=== PATIENT | female | born 1980 | race Caucasian/White ===

== ENCOUNTER 2024-04-13 19:11 | Emergency (ER) | payer OTHER, SELFPAY ==
[2024-04-13 19:25] VITALS: BP 128/68
[2024-04-13 20:07] LABS: % Basophils 0.6 % (0-2); % Immature Granulocytes 0.1 % (0-0.5); % Lymphocytes 31.7 % (20.5-51.1); % Monocytes 2.8 % (1.7-9.3); % Neutrophils 63.8 % (42.2-75.2); Absolute Eosinophils 0.1 10^3/uL (0-0.7); Absolute Lymphocytes 2.1 10^3/uL (1.2-3.4); Absolute Monocytes 0.2 10^3/uL (0.1-0.6); Absolute Neutrophils 4.3 10^3/uL (1.4-6.5); Hematocrit 35.7 % (37.0-47.0); Hemoglobin 12.9 g/dL (12.0-16.0); Mean Corp Hgb Conc. 36.1 g/dL (33.0-37.0); Mean Corpuscular Hgb 30.1 pg (27.0-31.0); Mean Corpuscular Volume 83.4 fL (81.0-99.0); Mean Platelet Volume 9.7 fL (7.4-10.4); Nucleated Red Blood Cells % 0 %; Platelet Count 195 10^3/uL (130-400); Red Blood Cell Count 4.28 10^6/uL (4.20-5.40); Red Cell Dist. Width 12.4 % (11.5-14.5); White Blood Cell Count 6.7 10^3/uL (4.8-10.8)
[2024-04-13 20:20] LABS: ALT (SGPT) 25 U/L (0-35); AST (SGOT) 34 U/L (14-36); Albumin 4.4 g/dl (3.5-5.0); Alkaline Phosphatase 69 U/L (38-126); Blood Urea Nitrogen 17 mg/dl (7-17); Calcium 9.3 mg/dl (8.4-10.2); Carbon Dioxide 31 mmol/L (22-30); Chloride 101 mmol/L (98-107); Glucose 102 mg/dl (70-99); Lipase 91 U/L (23-300); Potassium 3.5 mmol/L (3.5-5.1); Sodium 139 mmol/L (135-145); Total Bilirubin 1.2 mg/dl (0.2-1.3); Total Protein 7.2 g/dl (6.3-8.2); eGFR > 60.00
[2024-04-13 20:32] LABS: Troponin I < 0.012 ng/ml
--- NOTE | 2024-04-13 20:57 | ED.GENMED ---
History of Present Illness
General
Chief Complaint: Chest Pain
Time Seen by Provider: 04/13/24 20:04
Travel History
Have you had any contact with someone who has COVID-19?: No
Do you have any symptoms of coronavirus? Fever > 100 degrees, chills, cough, shortness of breath, sore throat, loss of taste or smell, muscle aches, or headache?: No
Course
Orders/Labs/Results
Orders:
Orders
04/13/24 19:13
EKG [Electrocardiogram (*1)] Stat
Reason for Study: Chest Pain
04/13/24 19:14
EKG- Treatment ONCE
04/13/24 19:32
Cardiac Monitoring- Treatment ONCE
IV Insert/Care/Rem.- Treatment PRN
CR Chest - 2 Views Urgent
Comment:
Reason For Exam: respiratory distress
O2 Therapy [RESP] Urgent
Titrate/Wean O2 to maintain O2 sat greater than (%): 93
Special Instructions: TO MAINTAIN CONTINUOUS O2 SATS >/= 93%
Pulse Ox/cont/shift [RESP] Urgent
Quantity: 1
Special Instructions: continuous pulse ox
04/13/24 20:02
Complete Blood Count/With Diff Urgent
Comprehensive Metabolic Panel Urgent
Lipase Urgent
Troponin I Urgent
04/13/24 20:55
Ketorolac [Toradol] 30 mg IM NOW STA
04/13/24 20:59
D-Dimer Urgent
Abnormal Lab Results
04/13/24
20:02
Hct 35.7 L %
(37.0-47.0)
Carbon Dioxide 31 H mmol/L
(22-30)
Glucose 102 H mg/dl
(70-99)
04/13/24 20:02
04/13/24 20:02
Vital Signs
Initial and Last Documented VS:
Initial Vital Signs
Temp Pulse Resp BP Pulse Ox
98.6 F 66 20 128/68 99
04/13/24 19:25 04/13/24 19:25 04/13/24 19:25 04/13/24 19:25 04/13/24 19:25
Last Documented Vital Signs
Temp Pulse Resp BP Pulse Ox
98.6 F 72 18 128/68 99
04/13/24 19:25 04/13/24 20:00 04/13/24 20:00 04/13/24 19:25 04/13/24 20:00
ED Attending Note
ED Attending Note
Patient seen and examined by attending physician: Yes
I performed the substantive portion of visit, reviewed & personally made and approve the management plan that is documented in note by myself or ASHUTOSH.: Yes
-
Portions of this chart may have been created with voice recognition software.� Occasional wrong word or��sound alike� substitutions may have occurred due to the inherent limitations of voice recognition software.
Discharge Plan
Departure
Patient Disposition: Home (Routine Discharge)
Date of Disposition: 04/13/24
Time of Disposition: 22:14
Patient with high blood pressure during this ER visit?: No
Condition: Good
Covid-19: Not Applicable
Discharge Problem:
Chest pain
Instructions: Chest Pain That Is Not Caused by the Heart (DC), Ibuprofen, Chest Pain PCP Follow Up
Prescriptions:
No Action
escitalopram oxalate [Lexapro] 10 mg Tablet
10 mg PO DAILY
Referrals:
Lucy Robledo MD [Family Provider] - Follow up in 2-3 days
Activity Restrictions/Additional Instructions:
Return to the emergency department immediately for any changes in/worsening of your symptoms.
Interventions
Interventions:
*Risk Screen - Suicide Last Done: 04/13/24 19:25
*General Assessment Last Done: 04/13/24 19:25
*Neglect/Abuse Screening Last Done: 04/13/24 19:25
ED- Fall Risk Assessment Last Done: 04/13/24 19:25
*ED COVID-19 Vaccine History Last Done: 04/13/24 19:25
*Nursing Disposition Last Done: 04/13/24 22:29
ED- Cardiac Assessment Last Done: 04/13/24 19:50
Discharge Date and Time
Discharge Date/Time: 04/13/24 22:29
Print Language: VENEZUELAN
[2024-04-13] MEDS: TORADOL 30 MG IM (21:02)
[2024-04-13 21:17] LABS: D-Dimer 0.28 ug/mlFEU (0.00-0.50)
--- NOTE | 2024-04-13 23:42 | ED.GENMED ---
History of Present Illness
<Ana Casey NP - Last Filed: 04/14/24 00:56>
General
Chief Complaint: Chest Pain
Source: patient
Exam Limitations: none
Time Seen by Provider: 04/13/24 20:04
Nursing documentation reviewed up to this point in time: agreed with
Travel History
Have you had any contact with someone who has COVID-19?: No
Do you have any symptoms of coronavirus? Fever > 100 degrees, chills, cough, shortness of breath, sore throat, loss of taste or smell, muscle aches, or headache?: No
History of Present Illness
History of Present Illness:
Patient to ED with complaint of left ant. chest pain. States it is located in 1 spot on left side of chest. Pain does not radiate. No associated n/v/diaphoresis. Denies any SOB. No prior history of same. Symptoms started approx 2 hours [employer]
Past History
<Ana Casey NP - Last Filed: 04/14/24 00:56>
Past History
ED Past Medical History: Psychiatric (anxiety)
ED Past Surgical History: and Other (benign breast tumor)
Social History
Tobacco: Non-smoker
Alcohol: None
Drug: Marijuana (occasional)
Review of Systems
<Ana Casey NP - Last Filed: 04/14/24 00:56>
Review of Systems
Allergies reviewed?: Yes
All Other Systems: ROS reviewed and negative except as documented in HPI and ROS
Constitutional: Reports no symptoms
EENT: Reports no symptoms
Respiratory: Reports no symptoms
Cardiac: Reports chest pain
ABD/GI: Reports no symptoms
Musculoskeletal: Reports no symptoms
Skin: Reports no symptoms
Neurological: Reports no symptoms
Psychiatric: Reports no symptoms
Phy Exam
<Ana Casey NP - Last Filed: 04/14/24 00:56>
General Physical Exam
General Presentation: well appearing and no apparent distress
General age: appears stated age
General Skin: warm and dry
General Habitus: normal
General Mental: alert
Cardiovascular Exam
Cardiovascular Exam: regular rate/rhythm and no edema
Pulmonary Exam
Pulmonary Exam: lungs clear and no respiratory distress
Musculoskeletal Exam
Musculoskeletal Exam: full ROM and neuro vasc intact
Skin Exam
Skin Exam: normal color
Psychiatric Exam
Psychiatric Exam: normal mood/affect
Scores
<Ana Casey NP - Last Filed: 04/14/24 00:56>
Heart Score for Chest Pain Patients
STEMI patient?: No
History: Slightly or Non-Suspicious
ECG: Normal
Age: </= 45 years
Risk Factors: No Risk Factors
Troponin: </= Normal Limit
Heart Score for Chest Pain Patients: 0
Heart Score Risk: 2.5% MACE over next 6 weeks
<Nino Roberts DO - Last Filed: 04/17/24 09:16>
Heart Score for Chest Pain Patients
Heart Score for Chest Pain Patients: 0
Heart Score Risk: 2.5% MACE over next 6 weeks
Course
<Ana Casey DIRECTOR CLINICAL DATA - Last Filed: 04/14/24 00:56>
Orders/Labs/Results
Orders:
Orders
04/13/24 19:13
EKG [Electrocardiogram (*1)] Stat
Reason for Study: Chest Pain
04/13/24 19:14
EKG- Treatment ONCE
04/13/24 19:32
Cardiac Monitoring- Treatment ONCE
IV Insert/Care/Rem.- Treatment PRN
CR Chest - 2 Views Urgent
Comment:
Reason For Exam: respiratory distress
O2 Therapy [RESP] Urgent
Titrate/Wean O2 to maintain O2 sat greater than (%): 93
Special Instructions: TO MAINTAIN CONTINUOUS O2 SATS >/= 93%
Pulse Ox/cont/shift [RESP] Urgent
Quantity: 1
Special Instructions: continuous pulse ox
04/13/24 20:02
Complete Blood Count/With Diff Urgent
Comprehensive Metabolic Panel Urgent
Lipase Urgent
Troponin I Urgent
04/13/24 20:55
Ketorolac [Toradol] 30 mg IM NOW STA
04/13/24 20:59
D-Dimer Urgent
Abnormal Lab Results
04/13/24
20:02
Hct 35.7 L %
(37.0-47.0)
Carbon Dioxide 31 H mmol/L
(22-30)
Glucose 102 H mg/dl
(70-99)
04/13/24 20:02
04/13/24 20:02
Vital Signs
Initial and Last Documented VS:
Initial Vital Signs
Temp Pulse Resp BP Pulse Ox
98.6 F 66 20 128/68 99
04/13/24 19:25 04/13/24 19:25 04/13/24 19:25 04/13/24 19:25 04/13/24 19:25
Last Documented Vital Signs
Temp Pulse Resp BP Pulse Ox
98.6 F 72 18 128/68 99
04/13/24 19:25 04/13/24 20:00 04/13/24 20:00 04/13/24 19:25 04/13/24 20:00
Abnerlt;Nino Roberts DO - Last Filed: 04/17/24 09:16>
Orders/Labs/Results
Orders:
Orders
04/13/24 19:13
EKG [Electrocardiogram (*1)] Stat
Reason for Study: Chest Pain
04/13/24 19:14
EKG- Treatment ONCE
04/13/24 19:32
Cardiac Monitoring- Treatment ONCE
IV Insert/Care/Rem.- Treatment PRN
CR Chest - 2 Views Urgent
Comment:
Reason For Exam: respiratory distress
O2 Therapy [RESP] Urgent
Titrate/Wean O2 to maintain O2 sat greater than (%): 93
Special Instructions: TO MAINTAIN CONTINUOUS O2 SATS >/= 93%
Pulse Ox/cont/shift [RESP] Urgent
Quantity: 1
Special Instructions: continuous pulse ox
04/13/24 20:02
Complete Blood Count/With Diff Urgent
Comprehensive Metabolic Panel Urgent
Lipase Urgent
Troponin I Urgent
04/13/24 20:55
Ketorolac [Toradol] 30 mg IM NOW STA
04/13/24 20:59
D-Dimer Urgent
Abnormal Lab Results
04/13/24
20:02
Hct 35.7 L %
(37.0-47.0)
Carbon Dioxide 31 H mmol/L
(22-30)
Glucose 102 H mg/dl
(70-99)
04/13/24 20:02
04/13/24 20:02
Vital Signs
Initial and Last Documented VS:
Initial Vital Signs
Temp Pulse Resp BP Pulse Ox
98.6 F 66 20 128/68 99
04/13/24 19:25 04/13/24 19:25 04/13/24 19:25 04/13/24 19:25 04/13/24 19:25
Last Documented Vital Signs
Temp Pulse Resp BP Pulse Ox
98.6 F 72 18 128/68 99
04/13/24 19:25 04/13/24 20:00 04/13/24 20:00 04/13/24 19:25 04/13/24 20:00
&;Ana Casey NP - Last Filed: 04/14/24 00:56>
*Critical Care Note
Total Time (30-74mins, 75-104mins- exclusive of procedures): Not Applicable
ED Attending Note
<Ana Casey NP - Last Filed: 04/14/24 00:56>
-
Portions of this chart may have been created with voice recognition software.� Occasional wrong word or��sound alike� substitutions may have occurred due to the inherent limitations of voice recognition software.
<Nino Roberts DO - Last Filed: 04/17/24 09:16>
ED Attending Note
Patient seen and examined by attending physician: Yes
I performed the substantive portion of visit, reviewed & personally made and approve the management plan that is documented in note by myself or ASHUTOSH.: Yes
ED Attending Note:
Patient is a 43-year-old female presents to the emergency department after approximately 3 to 4 hours ago she was walking or driving home and developed left chest pain that will not stop. Patient states it is a pressure that increases with
breathing and moving around. She also states that sharp. Patient denies history of PE or DVT. Patient denies risk factors for PE or DVT. Patient denies leg pain or swelling. Patient is non-smoker. Patient denies fever, chills, nasal congestion
or sore throat. Patient had a cough last week along with stomach upset that resolved. Patient denies any abdominal pain, nausea, vomiting or diarrhea. Patient denies any family history of CAD. On physical exam patient is in no distress. Heart
is regular without murmur or gallop. Lungs are clear. Patient has no bruits. Patient is normocephalic and supple neck. Abdomen is soft nontender. Chest wall is nontender. Legs no tenderness, swelling, cyanosis. Patient has good pulses. EKG
and labs are unremarkable as is the chest x-ray. Will check a D-dimer but believe this to be more costochondritis, musculoskeletal chest pain. Anticipate the patient being able to be discharged and go home.
Discharge Plan
Departure
Patient Disposition: Home (Routine Discharge)
Date of Disposition: 04/13/24
Time of Disposition: 22:14
Patient with high blood pressure during this ER visit?: No
Condition: Good
Covid-19: Not Applicable
Discharge Problem:
Chest pain
Instructions: Chest Pain That Is Not Caused by the Heart (DC), Ibuprofen, Chest Pain PCP Follow Up
Prescriptions:
No Action
escitalopram oxalate [Lexapro] 10 mg Tablet
10 mg PO DAILY
Referrals:
Lucy Robledo MD [Family Provider] - Follow up in 2-3 days
Activity Restrictions/Additional Instructions:
Return to the emergency department immediately for any changes in/worsening of your symptoms.
Interventions
Interventions:
*Risk Screen - Suicide Last Done: 04/13/24 19:25
*General Assessment Last Done: 04/13/24 19:25
*Neglect/Abuse Screening Last Done: 04/13/24 19:25
ED- Fall Risk Assessment Last Done: 04/13/24 19:25
*ED COVID-19 Vaccine History Last Done: 04/13/24 19:25
*Nursing Disposition Last Done: 04/13/24 22:29
ED- Cardiac Assessment Last Done: 04/13/24 19:50
Discharge Date and Time
Discharge Date/Time: 04/13/24 22:29
Print Language: SLOVENIAN
== END 2024-04-13 22:29 | disposition home or self-care (01) ==
LOC: EMR 19:11
PROVIDERS: Emergency Medicine; EMERGENCY PHYSICIAN Emergency Medicine; FAMILY PHYSICIAN Internal Medicine
DX: R07.89 Other chest pain (principal); F41.9 Anxiety disorder, unspecified
CPT/HCPCS: 99283; 96372; 71046; 80053; 83690; 84484; 85025; 85379; 93005